=== PATIENT | female | born 1965 | race African-American/Black ===

== ENCOUNTER 2016-05-29 22:22 | Emergency (ER) | payer OTHER ==
--- NOTE | ~2016-05-29 | EKG ---
PATIENT: EMANUEL LOVE UNIT #: [id number] Ventricular Rate: 79 BPM Atrial Rate: 79 BPM P-R Interval: 150 ms QRS Duration: 82 ms Q-T Interval: 370 ms QTC Calculation(Bezet): 424 ms P [employer]: 45 degrees Calculated R [employer]: -10 degrees Calculated T [employer]: 22 degrees Diagnosis Line: Normal sinus rhythm Diagnosis Line: Normal ECG Diagnosis Line: Diagnosis Line: Confirmed by RODRIGUEZ GRACE MD ([id number]) on 05/31/2016 Diagnosis Line: 10:55:16 PM INTERPRETING MD: LESLY BANKS
[2016-05-29 17:03] LABS: BASOPHIL% 0.4 % (0-2.5); EOSINOPHIL# 0.1 X10e3 (0-0.7); EOSINOPHIL% 1.1 % (0.0-7.0); HEMATOCRIT 36.7 % (35.0-45.0); HEMOGLOBIN 11.6 gm/dL (12.0-16.0); LYMPHOCYTE# 2.3 X10e3 (1.0-3.5); LYMPHOCYTE% 34.6 % (17.0-45.0); MEAN CORPUSCULAR HEMOGLOBIN 24.6 PG (28-34); MEAN CORPUSCULAR HGB CONC 31.5 g/dL (30-36); MEAN PLATELET VOLUME 9.4 FL (6.5-11.5); MONOCYTE# 0.7 X10e3 (0-1.0); MONOCYTE% 10.7 % (3.0-12.0); NEUTROPHIL# 3.6 X10e3 (1.5-7.1); NEUTROPHIL% 53.2 % (40-75); PLATELET COUNT 158 X10e3 (140-420); RED BLOOD COUNT 4.71 X10e (3.90-5.30); RED CELL DISTRIBUTION WIDTH 16.5 % (11.0-15.5); WHITE BLOOD COUNT 6.7 X10e3 (4.0-10.5)
[2016-05-29 17:08] LABS: DIFF IND NO
[2016-05-29 17:29] LABS: ALBUMIN SERUM 3.8 g/dL (3.5-5.0); BILIRUBIN, DIRECT 0.1 mg/dL (0.0-0.2); BILIRUBIN,INDIRECT 0.6 mg/dL (0.0-0.9); BILIRUBIN,TOTAL 0.7 mg/dL (0.2-2.0); CALCIUM SERUM 8.7 mg/dL (8.4-10.2); CREATININE SERUM 0.5 mg/dL (0.6-1.4); GLOM FILT RATE Estimated 129.9 mL/min (>60); POTASSIUM 3.7 mmol/L (3.5-5.1); PROTEIN TOTAL SERUM 7.2 g/dL (6.0-8.3)
== END 2016-05-29 22:30 | disposition home or self-care (01) ==
LOC: CED 22:22
DX: S06.0X9A Concussion with loss of consciousness of unspecified duration, initial encounter (principal); S00.83XA Contusion of other part of head, initial encounter; V49.10XA Passenger injured in collision with unspecified motor vehicles in nontraffic accident, initial encounter
CPT/HCPCS: 36415; 80048; 80076; 85025; 93005; 99283

== ENCOUNTER 2016-08-02 11:07 | Emergency (ER) | payer OTHER | END 2016-08-02 11:30 | disposition home or self-care (01) | LOC: CED 11:07 → CFTX 11:07 | DX: Z48.01 Encounter for change or removal of surgical wound dressing (principal) | CPT/HCPCS: 99281 ==

== ENCOUNTER → 2016-08-02 | Outpatient (CLI) | payer OTHER ==
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
== END | disposition home or self-care (01) ==
LOC: CRAD 10:39
DX: M25.561 Pain in right knee (principal)
CPT/HCPCS: 73560

== ENCOUNTER → 2016-08-03 | Outpatient (CLI) | payer OTHER ==
--- NOTE | ~2016-08-03 | CR63 ---
[facility]. [facility] A Service of [facility] & [facility] RADIOLOGY TEXT RESULTS PATIENT: EMANUEL LOVE LOCATION: [facility] : 63 UNIT #: [id number] AGE: [address]: Ramona Coats MD SEX: F ORDER DR: [id number] [facility] [address] [place], [place] [address] [id number] O MR#: [id number] Acc #: [id number] NAME: EMANUEL LOVE : 1965 SEX: F STUDY DATE/TIME: 08/03/2016 10:50 UNIT: [facility] ROOM: STUDY DESCRIPTION: CR Chest 2 View Attending Physician: Ramona Coats M.D. Referring Physician: Ramona Coats M.D. Ordering Physician: Ramona Coats M.D. Primary Care Physician: Ramona Coats M.D. MEDICAL IMAGING REPORT This report is preliminary unless electronic signature is present EXAM PA and lateral chest. HISTORY SUPPLIED Chest pain, left-sided for 6 weeks. FINDINGS PA and lateral views of the chest are obtained. The heart size is within normal limits. Vascular pattern is normal and the lungs are clear. CONCLUSION Normal chest. Dictated by... Chris Le M.D. THIS IS AN ELECTRONICALLY VERIFIED REPORT Chris Le M.D. at 08/03/2016 4:50 PM ABBY/grady TD: 08/03/2016 16:06 JOB #: [id number] MEDICAL IMAGING REPORT Page 1 of 1 COPY
== END | disposition home or self-care (01) ==
LOC: CRAD 10:45
DX: R07.9 Chest pain, unspecified (principal)
CPT/HCPCS: 71020